=== PATIENT | female | born 1955 | race Caucasian/White ===

== ENCOUNTER 2022-08-20 17:18 | Emergency (ER) | payer MEDICARE, OTHER ==
[~2022-08-20] VITALS: Ht 167.6 cm; Wt 113.4 kg
[2022-08-20 17:47] LABS: BASOPHILS PERCENT AUTO 1 % (0-2); EOSINOPHILS ABSOLUTE AUTO 0.15 K/mm3 (0.00-0.68); EOSINOPHILS PERCENT AUTO 1 % (0-6); Hematocrit 37.5 % (33.0-51.0); Hemoglobin 12.4 g/dL (11.5-16.0); IMMATURE GRAN ABSOLUTE AUTO 0.07 K/mm3 (0.00-0.10); IMMATURE GRAN PERCENT AUTO 1 % (0-1); LYMPHOCYTES ABSOLUTE AUTO 2.65 K/mm3 (0.84-5.20); LYMPHOCYTES PERCENT AUTO 19 % (21-46); MONOCYTES ABSOLUTE AUTO 1.45 K/mm3 (0.16-1.47); MONOCYTES PERCENT AUTO 10 % (4-13); Mean Corpuscular HGB 28.6 pg (26.0-34.0); Mean Corpuscular HGB Conc 33.1 g/dL (31.5-36.5); Mean Corpuscular Volume 86 fL (80-100); Mean Platelet Volume 9.3 fL (9.1-12.4); NEUTROPHILS ABSOLUTE AUTO 9.69 K/mm3 (1.96-9.15); NEUTROPHILS PERCENT AUTO 69 % (41-73); Platelet Count 388 K/mm3 (150-400); RDW Coefficient Variation 13.2 % (11.7-14.2); RDW Standard Deviation 41.3 fL (35.1-46.3); Red Blood Cell Count 4.34 M/mm3 (3.80-5.20); White Blood Cell Count 14.11 K/mm3 (4.00-11.30)
[2022-08-20 18:08] LABS: Albumin, Blood 3.5 g/dL (3.4-5.0); Albumin/Globulin Ratio 0.7 (0.8-1.8); Bilirubin, Total 0.6 mg/dL (0.1-1.0); Bun/Creatinine Ratio 17.9 (12.0-20.0); Calcium, Blood 9.7 mg/dL (8.5-10.1); Creatinine, Blood 0.89 mg/dL (0.40-1.00); Globulin, Blood 4.8 g/dL (2.2-4.0); Total Protein, Blood 8.3 g/dL (6.4-8.2)
[2022-08-20] MEDS ORDERED: ZESTRIL40 M1 PO (18:13)
[2022-08-20] MEDS ORDERED: Ventolin5 MG/1 ML INH (18:13)
[2022-08-20] MEDS ORDERED: AMLO5 PO (18:13)
[2022-08-20] MEDS ORDERED: FAMO20 PO (18:14)
[2022-08-20] MEDS ORDERED: LORA10ER PO (18:14)
[2022-08-20] MEDS ORDERED: ASPI81CH PO (18:14)
[2022-08-20] MEDS ORDERED: Vitamin D1000 UNI1 PO (18:14)
[2022-08-20] MEDS ORDERED: FLOVENT HFA12 GM (18:15)
[2022-08-20] MEDS ORDERED: NITR.4SL SL (18:15)
[2022-08-20 18:17] LABS: Influenza A, PCR NEGATIVE (NEGATIVE); Influenza B, PCR NEGATIVE (NEGATIVE); Resp Syncytial Virus, PCR NEGATIVE (NEGATIVE); SARS-Cov-2 (COVID-19) PCR, MMC NEGATIVE (NEGATIVE)
[2022-08-20] MEDS ORDERED: Tessalon200 MG PO (20:22)
[2022-08-20] MEDS ORDERED: AMOCLA875 PO (20:22)
[2022-08-20] MEDS ORDERED: Prednisone50 MG PO (20:22)
== END 2022-08-20 20:40 | disposition home or self-care (01) ==
LOC: ER 17:18
PROVIDERS: Physician Assistant
DX: J44.0 Chronic obstructive pulmonary disease with (acute) lower respiratory infection (principal); J20.9 Acute bronchitis, unspecified; I10 Essential (primary) hypertension; F17.200 Nicotine dependence, unspecified, uncomplicated; Z20.822 Contact with and (suspected) exposure to COVID-19; Z79.899 Other long term (current) drug therapy; Z79.82 Long term (current) use of aspirin
CPT/HCPCS: 0241U; 71046; 80053; 85025; 93005; 93010; A9270; J7512